=== PATIENT | male | born 1965 | race Caucasian/White ===

== ENCOUNTER 2018-02-06 20:51 | Emergency (ER) | payer OTHER ==
[~2018-02-06] VITALS: Ht 190.5 cm; Wt 86.2 kg
[2018-02-06 21:03] VITALS: Ht 190.5 cm; Wt 86.2 kg
[2018-02-07 00:36] VITALS: BP 145/97
== END 2018-02-07 00:36 | disposition home or self-care (01) ==
LOC: ED 20:51
DX: S61.011A Laceration without foreign body of right thumb without damage to nail, initial encounter (principal); S61.212A Laceration without foreign body of right middle finger without damage to nail, initial encounter; I10 Essential (primary) hypertension; E11.9 Type 2 diabetes mellitus without complications; W25.XXXA Contact with sharp glass, initial encounter; Y93.89 Activity, other specified; Y92.89 Other specified places as the place of occurrence of the external cause; Y99.8 Other external cause status
CPT/HCPCS: A4570; J2001; Q0092

== ENCOUNTER 2019-01-17 20:11 | Emergency (ER) | payer OTHER ==
[~2019-01-17] VITALS: Ht 190.5 cm; Wt 84.4 kg
[2019-01-17 22:15] VITALS: BP 112/84
== END 2019-01-17 22:15 | disposition home or self-care (01) ==
LOC: ED 20:11
DX: S09.8XXA Other specified injuries of head, initial encounter (principal); I10 Essential (primary) hypertension; E11.9 Type 2 diabetes mellitus without complications; V89.2XXA Person injured in unspecified motor-vehicle accident, traffic, initial encounter; Y93.55 Activity, bike riding; Y92.89 Other specified places as the place of occurrence of the external cause; Y99.8 Other external cause status

== ENCOUNTER 2019-12-25 17:10 | Emergency (ER) | payer OTHER ==
[~2019-12-25] VITALS: Ht 188 cm; Wt 84.8 kg
[2019-12-25 17:16] VITALS: Ht 188 cm; Wt 84.8 kg
[2019-12-25 17:31] LABS: BASOPHIL % 1.1 % (0-2); PLATELET COUNT 194 x10^3mcL (130-400)
[2019-12-25 17:39] LABS: RED CELL DISTRIBUTION WIDTH 16.4 % (11.5-14.5)
[2019-12-25 17:57] LABS: CALCIUM 7.7 mg/dL (8.5-10.1); CARBON DIOXIDE 28.5 mmol/L (21-32); CHLORIDE SERUM 105 mmol/L (98-107); CREATININE SERUM 0.9 mg/dL (0.7-1.3); GFR1 > 60 mL/min; GLUCOSE SERUM 106 mg/dL (74-106); POTASSIUM SERUM 3.8 mmol/L (3.5-5.1); SODIUM SERUM 140 mmol/L (136-145)
[2019-12-25 18:03] LABS: ALBUMIN 3.8 g/dL (3.4-5.0); ALKALINE PHOSPHATASE 88 U/L (46-116); ALT/SGPT 63 U/L (16-63); AST/SGOT 59 U/L (15-37); MAGNESIUM 2.2 mg/dL (1.8-2.4); TOTAL PROTEIN, SERUM 7.1 g/dL (6.4-8.2)
[2019-12-25 21:47] VITALS: BP 120/77
== END 2019-12-25 21:47 | disposition home or self-care (01) ==
LOC: ED 17:10
PROVIDERS: Emergency Medicine
DX: S01.511A Laceration without foreign body of lip, initial encounter (principal); F10.129 Alcohol abuse with intoxication, unspecified; I10 Essential (primary) hypertension; E11.9 Type 2 diabetes mellitus without complications; Y04.0XXA Assault by unarmed brawl or fight, initial encounter; Y93.89 Activity, other specified; Y92.89 Other specified places as the place of occurrence of the external cause; Y99.8 Other external cause status; Y90.8 Blood alcohol level of 240 mg/100 ml or more
CPT/HCPCS: 90715; G0480; J3411; J7030

== ENCOUNTER 2020-01-02 05:03 | Emergency (ER) | payer OTHER ==
[~2020-01-02] VITALS: Ht 188 cm; Wt 78.5 kg
[2020-01-02 05:43] VITALS: BP 121/91
== END 2020-01-02 05:44 | disposition home or self-care (01) ==
LOC: ED 05:03
DX: S01.511D Laceration without foreign body of lip, subsequent encounter (principal); I10 Essential (primary) hypertension; E11.9 Type 2 diabetes mellitus without complications; F17.200 Nicotine dependence, unspecified, uncomplicated; X58.XXXD Exposure to other specified factors, subsequent encounter